=== PATIENT | female | born 1980 | race Caucasian/White ===

== ENCOUNTER → 2016-08-13 | Outpatient (CLI) | payer BC ==
--- NOTE | ~2016-08-13 | MY11 ---
[facility] A Service of [facility] RADIOLOGY TEXT RESULTS PATIENT: EL LOONEY LOCATION: [facility] : [birth year] UNIT #: [id number] AGE: [address]: Candice Wray MD SEX: F ORDER DR: [id number] [facility] [address] [place], [place] [address] [id number] O MR#: [id number] Acc #: [id number] NAME: EL LOONEY : 1980 SEX: F STUDY DATE/TIME: 08/13/2016 16:18 UNIT: [facility] ROOM: STUDY DESCRIPTION: MY Mammogram Screening Dig Abel Attending Physician: Candice Wray M.D. Referring Physician: Candice Wray M.D. Ordering Physician: Candice Wray M.D. Primary Care Physician: Candice Wray M.D. MEDICAL IMAGING REPORT This report is preliminary unless electronic signature is present EXAM Digital screening mammogram, 08/13/2016 HISTORY 35-year-old woman baseline mammogram. No risk elevation. FINDINGS Digital imaging of each breast was completed utilizing screening protocol. Review includes FDA-approved CAD device. Breast parenchyma is moderately dense with fibroglandular opacities bilaterally. Subareolar duct prominence is noted. There is no breast mass. There are no suspicious microcalcifications and no focal architectural distortion. IMPRESSION Negative baseline mammogram. Annual screening beginning at age 40 recommended. Patients over the age of 40 are entered into a reminder system with target due date for the next mammogram. A result letter will also be sent to the patient. BIRADS: 1 Negative Dictated by... Lyle Baxter M.D. THIS IS AN ELECTRONICALLY VERIFIED REPORT Lyle Baxter M.D. at 08/14/2016 10:10 AM Judith TD: 08/14/2016 09:47 JOB #: [id number] [facility] A Service of [facility] RADIOLOGY TEXT RESULTS PATIENT: EL LOONEY LOCATION: [facility] : 80 UNIT #: [id number] AGE: [address]: Candice Wray MD SEX: F ORDER DR: MEDICAL IMAGING REPORT Page 1 of 1 COPY
== END | disposition home or self-care (01) ==
LOC: CWCC 15:54
DX: Z12.31 Encounter for screening mammogram for malignant neoplasm of breast (principal)
CPT/HCPCS: G0202